=== PATIENT | female | born 1950 | race Two or more races ===

== ENCOUNTER 2021-01-02 14:36 | Inpatient (IN) | payer MEDICARE ==
[~2021-01-02] VITALS: Ht 154.9 cm; Wt 52.1 kg
[2021-01-02 15:50] LABS: BASOPHILS % (AUTO) 0 % (0-1); EOSINOPHILS % (AUTO) 0 % (1-7); LYMPHOCYTES % (AUTO) 8 % (22-44); MEAN PLATELET VOLUME 8.3 fL (7.4-10.4); MONOCYTES % (AUTO) 8 % (2-9); NEUTROPHILS % (AUTO) 84 % (42-75); PLATELET COUNT 335 x10^3/uL (130-400); RED BLOOD COUNT 6.06 x10^6/uL (3.82-5.3); RED CELL DISTRIBUTION WIDTH 13.3 % (9.6-15.2)
--- NOTE | 2021-01-02 16:14 | NUR ---
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
[2021-01-02 16:18] LABS: ALANINE AMINOTRANSFERASE 25 U/L (12-78); ALBUMIN 4.9 g/dL (3.4-5.0); CALCIUM 10.7 mg/dL (8.5-10.1); CREATININE 1.71 mg/dL (0.55-1.02)
[2021-01-02 16:20] LABS: ALKALINE PHOSPHATASE 70 U/L (45-117); BILIRUBIN,TOTAL 1.2 mg/dL (0.2-1.0); TOTAL PROTEIN 9.5 g/dL (6.4-8.2)
[2021-01-02 16:24] LABS: ANION GAP 13 mmol/L (5-15); CHLORIDE 76 mmol/L (98-107)
--- NOTE | 2021-01-02 16:37 | NUR ---
PATIENT WALKED BACK FROM LOBBY WITH CHIEF C/O DIZZINESS X3 DAYS. PATIENT REPORTS ABD PAIN AND N/V THAT STARTED THIS MORNING. NADN, CONNECTED TO MONITOR, VSS, SPOUSE AT BEDSIDE, CALL LIGHT WITHIN REACH.
--- NOTE | 2021-01-02 16:51 | NUR ---
PATIENT'S Na+ IS 115, ERMD GAVE VERBAL ORDER TO START 0.9% NS AT 100 mLS/HR. 20 GAUGE IV STARTED LEFT AC, AND NS HUNG AT 100 mL'S/HR.
[2021-01-02] MEDS ORDERED: SODIUM CHLORIDE 0.9% 1,000 ML IV ONE (17:00)
--- NOTE | 2021-01-02 17:11 | NUR ---
PATIENT TO IMAGING.
--- NOTE | 2021-01-02 17:25 | NUR ---
PATIENT BACK FROM IMAGING, EDUCATED ABOUT NEED FOR URINE SAMPLE, PATIENT WILL TRY TO URINATE AFTER MORE FLUIDS.
[2021-01-02] MEDS ORDERED: ONDANSETRON 2MG/ML, 2ML ONE (17:42)
[2021-01-02] MEDS ORDERED: MORPHINE SULFATE 4 MG/ML, 1ML ONE (17:43)
--- NOTE | 2021-01-02 17:46 | NUR ---
PATIENT MEDICATED PER eMAR. CONNECTED TO MONITOR, VSS, SPOUSE AT BEDSIDE. ERMD AT BEDSIDE TO DISCUSS POC.
[2021-01-02] MEDS ORDERED: MORPHINE SULFATE 4 MG/ML, 1ML IVPush PRN (18:00)
[2021-01-02] MEDS ORDERED: HYDROmorphone 2 MG/ML, 1ML IV ONE (18:00)
[2021-01-02] MEDS ORDERED: ONDANSETRON 2MG/ML, 2ML IVPush ONE (18:00)
[2021-01-02] MEDS ORDERED: HYDROmorphone 2 MG/ML, 1ML ONE (18:02)
--- NOTE | 2021-01-02 18:20 | NUR ---
NG TUBE INSERTED IN LEFT NARE PER MD ORDER, PATIENT TOLERATED PROCEDURE WELL, YELLOW/BROWN DRAINAGE COMING OUT. SUCTION SET TO CONTINUOUS MEDIUM SUCTION.
--- NOTE | 2021-01-02 18:26 | NUR ---
CHEST X-RAY ORDERED STAT TO VERIFY NG TUBE PLACEMENT.
--- NOTE | 2021-01-02 18:40 | NUR ---
XRAY AT BEDSIDE.
--- NOTE | 2021-01-02 18:55 | NUR ---
REPORT GIVEN TO C[place] SWEENEY FOR TRANSFER OF PATIENT CARE.
--- NOTE | 2021-01-02 18:58 | NUR ---
RECEIVED REPORT FROM LETY GUTHRIE. TRANSFER OF CARE.
--- NOTE | 2021-01-02 19:15 | NUR ---
Patient is resting comfortably in bed. Bed in lowest, rails engaged, call light on lap. Vital Signs within normal limits. WCTM. NG TUBE IN PLACE. ON MEDIUM SUCTION. CANNISTER FUL OF LIGHT BROWN STOMACH CONTENT. 325 ML. NADN
--- NOTE | 2021-01-02 20:15 | NUR ---
PT TAKEN TO BATHROOM. AMBULATED WITH STEADY GAIT. PT STATES SHE HAD DIARRHIAL BM YESTERDAY PT BACK IN BED. ATTACHED TO MONITORS, SUCTION AT LOW CONT. VSS. ELVIAN PT GIVEN CHAPSTICK AND ORAL MOUTH SWABS. WCTM
[2021-01-02] MEDS ORDERED: morphine SULFATE 10 MG/ML, 1ML IVPush PRN (20:30)
[2021-01-02] MEDS ORDERED: ONDANSETRON 2MG/ML, 2ML IVPush PRN (20:30)
[2021-01-02 20:52] LABS: ALBUMIN 4.1 g/dL (3.4-5.0); ANION GAP 13 mmol/L (5-15); CALCIUM 9.6 mg/dL (8.5-10.1); CHLORIDE 81 mmol/L (98-107)
[2021-01-02 20:59] LABS: BASOPHILS % (AUTO) 0 % (0-1); EOSINOPHILS % (AUTO) 0 % (1-7); LYMPHOCYTES % (AUTO) 6 % (22-44); MEAN CORPUSCULAR HEMOGLOBIN 30.5 pg (27.0-34.8); MEAN CORPUSCULAR HGB CONC 35.6 g/dL (32.4-35.8); MEAN PLATELET VOLUME 8.3 fL (7.4-10.4); MONOCYTES % (AUTO) 5 % (2-9); NEUTROPHILS % (AUTO) 89 % (42-75); PLATELET COUNT 275 x10^3/uL (130-400); RED BLOOD COUNT 5.37 x10^6/uL (3.82-5.3); RED CELL DISTRIBUTION WIDTH 13.1 % (9.6-15.2)
[2021-01-02 21:03] LABS: MICROSCOPIC AUTO
[2021-01-02 21:14] LABS: ALANINE AMINOTRANSFERASE 58 U/L (12-78); ALKALINE PHOSPHATASE 93 U/L (45-117); BILIRUBIN,TOTAL 1.5 mg/dL (0.2-1.0); CREATININE 1.86 mg/dL (0.55-1.02); TOTAL PROTEIN 7.8 g/dL (6.4-8.2)
[2021-01-02] MEDS: LACTATED RINGERS 1,000 ML IV SCH (23:03)
[2021-01-03 00:15] VITALS: BP 121/83
[2021-01-03] MEDS ORDERED: calcium citrate (01:42)
[2021-01-03] MEDS ORDERED: amlodipine (01:42)
[2021-01-03] MEDS ORDERED: multivitamin (01:42)
[2021-01-03] MEDS ORDERED: metoprolol (01:42)
[2021-01-03] MEDS ORDERED: indomethacin (01:42)
[2021-01-03] MEDS ORDERED: losartan (01:42)
[2021-01-03] MEDS ORDERED: d-mannose (01:42)
[2021-01-03] MEDS ORDERED: omeprazole (01:42)
[2021-01-03] MEDS ORDERED: vitamin D (01:42)
[2021-01-03] MEDS ORDERED: magnesium (01:42)
[2021-01-03 05:42] LABS: ALBUMIN 3.3 g/dL (3.4-5.0); ANION GAP 9 mmol/L (5-15); CALCIUM 8.9 mg/dL (8.5-10.1); CHLORIDE 84 mmol/L (98-107)
[2021-01-03 05:45] LABS: ALANINE AMINOTRANSFERASE 239 U/L (12-78); ALKALINE PHOSPHATASE 108 U/L (45-117); BILIRUBIN,TOTAL 2.5 mg/dL (0.2-1.0); CREATININE 1.54 mg/dL (0.55-1.02); TOTAL PROTEIN 6.6 g/dL (6.4-8.2)
[2021-01-03] MEDS: LACTATED RINGERS 1,000 ML IV SCH ×2 (06:19→16:23)
[2021-01-03] MEDS ORDERED: POTASSIUM CHLORIDE 40 MEQ in SODIUM CHLORIDE 0.9% 500 ML IV ONE (08:00)
[2021-01-03] MEDS: PANTOPRAZOLE 40 MG IV IVPush SCH (08:01)
[2021-01-03 08:27] VITALS: BP 148/82
[2021-01-03] MEDS ORDERED: LOSA100T14 PO (11:21)
[2021-01-03] MEDS ORDERED: METO25TA91 PO (11:25)
[2021-01-03] MEDS ORDERED: AMLO-211 PO (11:25)
[2021-01-03] MEDS ORDERED: OMEP20TA62 PO (11:25)
[2021-01-03] MEDS ORDERED: ALEN70TA77 PO (11:41)
[2021-01-03] MEDS ORDERED: MAGN400T36 PO (11:41)
[2021-01-03] MEDS ORDERED: LOSA1TAB22 PO (11:41)
[2021-01-03] MEDS ORDERED: INDO25CA22 PO (11:41)
[2021-01-03] MEDS ORDERED: CIPR500T4 PO (11:41)
[2021-01-03] MEDS ORDERED: MELA3CAP2 PO (11:41)
[2021-01-03 11:50] LABS: ALANINE AMINOTRANSFERASE 314 U/L (12-78); ALBUMIN 3.7 g/dL (3.4-5.0); ANION GAP 8 mmol/L (5-15); CALCIUM 9.1 mg/dL (8.5-10.1); CHLORIDE 88 mmol/L (98-107)
[2021-01-03 11:53] LABS: ALKALINE PHOSPHATASE 134 U/L (45-117); BILIRUBIN,TOTAL 3.4 mg/dL (0.2-1.0); CREATININE 1.39 mg/dL (0.55-1.02); TOTAL PROTEIN 7.3 g/dL (6.4-8.2)
[2021-01-03 12:16] VITALS: BP 150/81
[2021-01-03] MEDS: AMLODIPINE 10 MG TAB PO SCH (12:20)
[2021-01-03] MEDS: METOPROLOL SUCCINATE 25 MG TAB.ER.24H PO SCH (12:20)
[2021-01-03] MEDS: LOSARTAN 25MG TABLET PO SCH (12:22)
[2021-01-03 16:26] LABS: ALANINE AMINOTRANSFERASE 277 U/L (12-78); ALBUMIN 3.6 g/dL (3.4-5.0); ANION GAP 8 mmol/L (5-15); CHLORIDE 93 mmol/L (98-107); CREATININE 1.22 mg/dL (0.55-1.02)
[2021-01-03 16:29] LABS: ALKALINE PHOSPHATASE 131 U/L (45-117); BILIRUBIN,TOTAL 2.3 mg/dL (0.2-1.0); TOTAL PROTEIN 6.9 g/dL (6.4-8.2)
[2021-01-03 18:35] VITALS: BP 144/84
[2021-01-03 20:06] VITALS: BP 132/81
[2021-01-03 21:35] LABS: ALANINE AMINOTRANSFERASE 255 U/L (12-78); ALBUMIN 3.6 g/dL (3.4-5.0); ANION GAP 6 mmol/L (5-15); CALCIUM 8.9 mg/dL (8.5-10.1); CHLORIDE 95 mmol/L (98-107); CREATININE 1.11 mg/dL (0.55-1.02)
[2021-01-03 21:37] LABS: ALKALINE PHOSPHATASE 128 U/L (45-117); BILIRUBIN,TOTAL 1.9 mg/dL (0.2-1.0)
[2021-01-04] MEDS: LACTATED RINGERS 1,000 ML IV SCH (01:05)
[2021-01-04 01:06] VITALS: BP 136/81
[2021-01-04 06:52] VITALS: BP 128/75
[2021-01-04 07:37] LABS: ALANINE AMINOTRANSFERASE 181 U/L (12-78); ALBUMIN 2.8 g/dL (3.4-5.0); ANION GAP 7 mmol/L (5-15); CALCIUM 8.4 mg/dL (8.5-10.1); CHLORIDE 98 mmol/L (98-107); CREATININE 0.78 mg/dL (0.55-1.02)
[2021-01-04 07:40] LABS: ALKALINE PHOSPHATASE 99 U/L (45-117); BILIRUBIN,TOTAL 1.8 mg/dL (0.2-1.0); TOTAL PROTEIN 5.6 g/dL (6.4-8.2)
[2021-01-04] MEDS: AMLODIPINE 10 MG TAB PO SCH (08:18)
[2021-01-04] MEDS: LOSARTAN 25MG TABLET PO SCH (08:18)
[2021-01-04] MEDS: PANTOPRAZOLE 40 MG IV IVPush SCH (08:18)
[2021-01-04] MEDS: METOPROLOL SUCCINATE 25 MG TAB.ER.24H PO SCH (08:18)
[2021-01-04 11:27] LABS: ALANINE AMINOTRANSFERASE 172 U/L (12-78); ALBUMIN 3.1 g/dL (3.4-5.0); ANION GAP 12 mmol/L (5-15); CALCIUM 8.3 mg/dL (8.5-10.1); CHLORIDE 98 mmol/L (98-107); CREATININE 0.77 mg/dL (0.55-1.02)
[2021-01-04 11:29] LABS: ALKALINE PHOSPHATASE 110 U/L (45-117); BILIRUBIN,TOTAL 1.4 mg/dL (0.2-1.0); TOTAL PROTEIN 6.2 g/dL (6.4-8.2)
[2021-01-04 12:33] VITALS: BP 124/78
[2021-01-04] MEDS ORDERED: LOSA25TA25 PO (13:48)
[2021-01-04 15:32] VITALS: BP 125/75
== END 2021-01-04 15:22 | disposition home or self-care (01) | DRG 389 ==
LOC: ED 19:23 → EDIP 20:11 → 4NE 21:30
PROVIDERS: ADMIT Internal Medicine; ATTEND Hospitalist
PROC: 0D9670Z Drainage of Stomach with Drainage Device, Via Natural or Artificial Opening (ICD-10-PCS; principal; 2021-01-02)
DX: K56.52 Intestinal adhesions [bands] with complete obstruction (principal); E87.1 Hypo-osmolality and hyponatremia; N17.9 Acute kidney failure, unspecified; I10 Essential (primary) hypertension; D72.828 Other elevated white blood cell count; E87.6 Hypokalemia; M81.0 Age-related osteoporosis without current pathological fracture; E80.6 Other disorders of bilirubin metabolism; T50.2X5A Adverse effect of carbonic-anhydrase inhibitors, benzothiadiazides and other diuretics, initial encounter; Y92.89 Other specified places as the place of occurrence of the external cause; Z90.710 Acquired absence of both cervix and uterus
CPT/HCPCS: 36415; 71045; 74021; 74176; 80053; 81001; 83036; 83690; 83735; 84100; 84443; 85025; 96374; 96375; 99291; G0378; J1170; J2405; J3480; C9113; J2270; J7030; J7040; J7120